=== PATIENT | male | born 1970 | race Caucasian/White ===

== ENCOUNTER → 2016-06-24 | Outpatient (CLI) | payer BC ==
[2016-06-24 09:29] LABS: MEAN CORPUSCULAR HEMOGLOBIN 32.2 pg (27.0-33.0); RED CELL DISTRIBUTION WIDTH 12.6 % (11.5-14.5); WHITE BLOOD COUNT 7.8 K/mm3 (4.0-10.0)
[2016-06-24 09:43] LABS: ALBUMIN 3.8 GM/DL (3.2-5.2); ALBUMIN/GLOBULIN RATIO 1.09 (1.00-1.93); ALKALINE PHOSPHATASE 95 U/L (45-117); ALT/SGPT 54 U/L (12-78); ANION GAP 9 MEQ/L (8-16); AST/SGOT 29 U/L (15-37); BILIRUBIN,TOTAL 0.6 MG/DL (0.2-1.0); BLOOD UREA NITROGEN 11 MG/DL (7-18); CALCIUM LEVEL 8.9 MG/DL (8.5-10.1); CARBON DIOXIDE LEVEL 26 MEQ/L (21-32); CHLORIDE LEVEL 103 MEQ/L (98-107); CHOLESTEROL LEVEL 285 MG/DL (<200); CREATININE FOR GFR 0.88 MG/DL (0.70-1.30); GLOMERULAR FILTRATION RATE > 60.0 (>60); GLUCOSE, FASTING 102 MG/DL (70-105); POTASSIUM SERUM 4.2 MEQ/L (3.5-5.1); SODIUM LEVEL 138 MEQ/L (136-145); TOTAL PROTEIN 7.3 GM/DL (6.4-8.2); TRIGLYCERIDES LEVEL 415 MG/DL (<150)
== END ==
LOC: M WUC 08:16
PROVIDERS: ATTEND Nurse Practitioner Family
DX: I10 Essential (primary) hypertension (principal)

== ENCOUNTER → 2016-07-29 | Outpatient (CLI) | payer BC ==
[2016-07-29 19:01] LABS: MEAN CORPUSCULAR HEMOGLOBIN 31.9 pg (27.0-33.0); MEAN CORPUSCULAR HGB CONC 34.6 g/dl (32.0-36.5); MEAN CORPUSCULAR VOLUME 92.3 fl (80.0-96.0); RED CELL DISTRIBUTION WIDTH 12.6 % (11.5-14.5); WHITE BLOOD COUNT 7.7 K/mm3 (4.0-10.0)
== END ==
LOC: M WUC 10:53
PROVIDERS: ATTEND Nurse Practitioner Family
DX: I10 Essential (primary) hypertension (principal)

== ENCOUNTER 2016-08-29 03:45 | Emergency (ER) | payer BC ==
[~2016-08-29] VITALS: Ht 177.8 cm; Wt 93.2 kg
[2016-08-29] MEDS ORDERED: ATEN50TA2 (03:58)
[2016-08-29] MEDS ORDERED: SIMV20TA2 (03:58)
[2016-08-29] MEDS ORDERED: LISI-538 (03:58)
[2016-08-29] MEDS ORDERED: FLUT1SPR2 (03:58)
[2016-08-29] MEDS ORDERED: ASPIRIN 81 MG CHEW TABLET PO ONE (05:30)
[2016-08-29] MEDS ORDERED: GI COCKTAIL 50ML BTL(HYOSCYAMINE/MAALOX/LIDOCAINE VISCOUS)(1:3:1) PO ONE (05:30)
[2016-08-29 05:35] LABS: BASO # 0.1 K/mm3 (0.0-0.2); BASO % 0.9 % (0.0-1.0); EOS # 0.3 K/mm3 (0.0-0.50); EOS % 3.3 % (0.0-3.0); LARGE UNSTAINED CELL # 0.2 K/mm3 (0.0-0.4); LYMPH % 47.7 % (24.0-44.0); MEAN CORPUSCULAR HEMOGLOBIN 31.3 pg (27.0-33.0); MEAN CORPUSCULAR HGB CONC 35.2 g/dl (32.0-36.5); MEAN CORPUSCULAR VOLUME 88.9 fl (80.0-96.0); MONO # 0.5 K/mm3 (0.0-0.8); MONO % 5.9 % (0.0-5.0); NEUTROPHILS # 3.1 K/mm3 (1.8-7.7); NEUTROPHILS % 39.1 % (36.0-66.0); PLATELET COUNT, AUTOMATED 275 k/mm3 (150-450); RED CELL DISTRIBUTION WIDTH 12.6 % (11.5-14.5); WHITE BLOOD COUNT 7.9 K/mm3 (4.0-10.0)
[2016-08-29 05:45] LABS: ANION GAP 10 MEQ/L (8-16); BLOOD UREA NITROGEN 10 MG/DL (7-18); CALCIUM LEVEL 8.9 MG/DL (8.5-10.1); CARBON DIOXIDE LEVEL 23 MEQ/L (21-32); CHLORIDE LEVEL 100 MEQ/L (98-107); CREATININE FOR GFR 0.89 MG/DL (0.70-1.30); GLOMERULAR FILTRATION RATE > 60.0 (>60); GLUCOSE, FASTING 124 MG/DL (70-105); POTASSIUM SERUM 3.8 MEQ/L (3.5-5.1); SODIUM LEVEL 133 MEQ/L (136-145)
[2016-08-29] MEDS ORDERED: NITROGLYCERIN 0.4 MG SUBL TABLET SL PRN (06:15)
[2016-08-29] MEDS ORDERED: ISOVUE-370 76% 100ML VIAL (Q9967) As Ordered ONE (08:29)
--- NOTE | 2016-08-29 09:41 | REP ---
CT ANGIOGRAM OF THE CHEST: TECHNIQUE: Axial contrast enhanced images from the thoracic inlet to the upper abdomen using 100 mL Isovue 370 intravenous contrast material with multiplanar reformations. There is no CT evidence of pulmonary embolism. There is no thoracic aortic aneurysm or dissection. Heart is normal in size. There is no mediastinal, hilar or chest wall lymphadenopathy. There is no pleural or pericardial effusion. No acute infiltrate is seen in either lung. There is minimal basilar fibroatelectatic change. The visualized upper abdominal structures appear unremarkable. IMPRESSION: No CT evidence of pulmonary embolism. Signed by Umberto Medina MD 08/29/2016 03:19 P
--- NOTE | 2016-08-29 10:00 | REP ---
CHEST, TWO VIEWS: There is no evidence of acute infiltrate. No pleural effusion is seen. The heart is normal in size. The mediastinal silhouette is unremarkable. The visualized osseous structures are intact. IMPRESSION: No acute pulmonary disease. Signed by Umberto Medina MD 08/29/2016 03:19 P
[2016-08-29 11:32] VITALS: BP 133/75
[2016-08-29] MEDS ORDERED: ASPI81TA85 PO (11:36)
--- NOTE | 2016-08-29 20:06 | ECGEPIP ---
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
--- NOTE | 2016-08-29 20:06 | ECGEPIP ---
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
--- NOTE | 2016-08-29 20:06 | ECGEPIP ---
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
== END 2016-08-29 11:41 | disposition home or self-care (01) ==
LOC: M ED 03:45
DX: R07.89 Other chest pain (principal); K21.9 Gastro-esophageal reflux disease without esophagitis; J30.2 Other seasonal allergic rhinitis; Z82.49 Family history of ischemic heart disease and other diseases of the circulatory system; Z79.82 Long term (current) use of aspirin; Z79.899 Other long term (current) drug therapy
CPT/HCPCS: 36415; 71020; 71275; 80048; 82550; 82553; 85025; 93005; 93041; 94760; 99285; G0480; Q9967

== ENCOUNTER → 2017-04-29 | Outpatient (CLI) | payer OTHER | LOC: M LRY 10:55 | DX: M54.9 Dorsalgia, unspecified (principal); M51.36 Other intervertebral disc degeneration, lumbar region | CPT/HCPCS: 72072 ==

== ENCOUNTER 2018-02-08 14:25 | Emergency (ER) | payer BC, OTHER ==
[~2018-02-08] VITALS: Ht 177.8 cm; Wt 100.0 kg
[~2018-02-08 14:25] MED LIST: ASPI81TA85 PO; ATEN50TA2; FLUT1SPR2; LISI-538; SIMV20TA2
[2018-02-08 16:46] LABS: INFLUENZA A AMPLIFICATION NEGATIVE (NEGATIVE); INFLUENZA B AMPLIFICATION NEGATIVE (NEGATIVE)
[2018-02-08] MEDS ORDERED: PSEU30TA21 PO (17:04)
[2018-02-08] MEDS ORDERED: FLON1SPR NARES (17:04)
[2018-02-08] MEDS ORDERED: MUCI600T37 PO (17:05)
[2018-02-08] MEDS ORDERED: NETI1KIT (17:05)
[2018-02-08 17:15] VITALS: BP 127/79
== END 2018-02-08 17:15 | disposition home or self-care (01) ==
LOC: M ED 14:25
DX: J06.9 Acute upper respiratory infection, unspecified (principal); E78.5 Hyperlipidemia, unspecified; I10 Essential (primary) hypertension; F17.210 Nicotine dependence, cigarettes, uncomplicated

== ENCOUNTER → 2018-02-26 | Outpatient (CLI) | payer BC ==
[~2018-02-26] MED LIST changes: +FLON1SPR NARES; +MUCI600T37 PO; +NETI1KIT; +PSEU30TA21 PO
--- NOTE | 2018-02-27 06:48 | REP ---
CHEST PA AND LATERAL: 02/26/2018. Comparison: 08/29/2016 chest x-ray and CT angiogram. Clinical history: Persistent cough. Findings: Two frontal views were required to encompass the and entirety of the chest and a lateral projection also provided. There is patchy infiltrate in the left lower lobe abutting the diaphragm and seen posteriorly on the lateral view as well. There is no pleural effusion. The right lung was clear. The heart, mediastinal and hilar contours are normal. Aorta and airway are intact. Bones were unremarkable. There is no free air under the diaphragm. Impression: 1. Patchy right lower lobe infiltrate. No effusion. Otherwise negative chest. Electronically Signed by Asher Shepard MD 02/27/2018 09:47 A
== END ==
LOC: M LRY 14:27
PROVIDERS: ATTEND Physician Assistant
DX: R05 Cough (principal)

== ENCOUNTER → 2018-03-03 | Outpatient (CLI) | payer BC ==
--- NOTE | 2018-03-03 19:56 | REP ---
Clinical: Follow up pneumonia. Technique: PA and lateral. Comparison: 02/26/2018. Findings: Left lower lobe infiltrate compatible with pneumonia is again identified but improved in appearance. No obvious effusion. No pneumothorax. Mediastinum and cardiac silhouette normal. Skeletal structures intact. Impression: Improved appearance to the left lower lobe infiltrate. Continued follow-up to resolution is recommended. Electronically Signed by Martín Mendez MD 03/03/2018 07:48 P
== END ==
LOC: M LRY 09:36
PROVIDERS: ATTEND Physician Assistant Medical
DX: J18.9 Pneumonia, unspecified organism (principal)

== ENCOUNTER → 2018-08-15 | Outpatient (CLI) | payer BC ==
--- NOTE | 2018-08-15 11:23 | REP ---
RIGHT FOOT SERIES: Four views. HISTORY: Injury of the right foot. FINDINGS: Four views of the right foot demonstrate a small plantar calcaneal spur. There is mild to moderate hallux valgus with osteoarthritic spurring at the 1st MTP joint. There is mild osteoarthritic spurring at the 1st tarsometatarsal articulation as well. No fractures seen. IMPRESSION: 1st MTP and MTT joint spurring. Mild hallux valgus. Heel spur. No acute bony abnormality. Electronically Signed by Fredrick Liang MD 08/15/2018 11:59 A
--- NOTE | 2018-08-15 11:24 | REP ---
RIGHT ANKLE SERIES: Four views. HISTORY: Unspecified injury. The patient reports a fall. FINDINGS: Four views of the right ankle demonstrate an intact ankle mortise. No fracture or subluxation is seen. Small plantar heel spur is noted. IMPRESSION: No fracture noted. Electronically Signed by Fredrick Liang MD 08/15/2018 11:59 A
== END ==
LOC: M LRY 10:15
PROVIDERS: ATTEND Nurse Practitioner Family
DX: M77.31 Calcaneal spur, right foot (principal)

== ENCOUNTER → 2018-11-02 | Outpatient (CLI) | payer BC ==
[2018-11-02 09:49] LABS: BASO # 0.1 10^3/uL (0.0-0.2); BASO % 0.7 % (0.0-1.0); EOS # 0.2 10^3/uL (0.0-0.5); EOS % 2.6 % (0.0-3.0); HEMOGLOBIN 16.3 g/dl (13.5-17.5); LYMPH # 3.6 10^3/uL (1.5-5.0); LYMPH % 46.7 % (24.0-44.0); MEAN CORPUSCULAR HEMOGLOBIN 30.5 pg (27.0-33.0); MEAN CORPUSCULAR HGB CONC 34.7 g/dl (32.0-36.5); MONO # 0.8 10^3/uL (0.0-0.8); MONO % 10.2 % (0.0-5.0); NEUTROPHILS % 39.7 % (36.0-66.0); PLATELET COUNT, AUTOMATED 292 10^3/uL (150-450); RED BLOOD COUNT 5.34 10^6/uL (4.30-6.10); WHITE BLOOD COUNT 7.7 10^3/uL (4.0-10.0)
[2018-11-02 10:30] LABS: ALBUMIN 3.7 GM/DL (3.2-5.2); ALT/SGPT 46 U/L (12-78); BILIRUBIN,TOTAL 0.5 MG/DL (0.2-1.0); BLOOD UREA NITROGEN 13 MG/DL (7-18); CALCIUM LEVEL 8.9 MG/DL (8.5-10.1); CARBON DIOXIDE LEVEL 30 MEQ/L (21-32); CHLORIDE LEVEL 100 MEQ/L (98-107); CHOLESTEROL LEVEL 307 MG/DL (<200); CHOLESTEROL RISK RATIO 9.029 (<5); CREATININE FOR GFR 0.95 MG/DL (0.70-1.30); FREE T4 0.87 NG/DL (0.76-1.46); GLOMERULAR FILTRATION RATE > 60.0 (>60); GLUCOSE, FASTING 108 MG/DL (70-100); HDL CHOLESTEROL 34 MG/DL (>40); NON-HDL-C 273 MG/DL; POTASSIUM SERUM 4.3 MEQ/L (3.5-5.1); SODIUM LEVEL 138 MEQ/L (136-145); TOTAL PROTEIN 7.4 GM/DL (6.4-8.2); TRIGLYCERIDES LEVEL 844 MG/DL (<150)
== END ==
LOC: M LAB 07:36
PROVIDERS: ATTEND Physician Assistant Medical
DX: R53.83 Other fatigue (principal)

== ENCOUNTER → 2018-12-20 | Outpatient (REF) | LOC: M LAB LCGH 14:50 | PROVIDERS: ATTEND Physician Assistant | DX: C44.311 Basal cell carcinoma of skin of nose (principal) ==

== ENCOUNTER → 2019-02-15 | Outpatient (REF) | payer BC ==
[~2019-02-15] MED LIST changes: -SIMV20TA2; +SIMV20TA22
[2019-02-15 16:41] LABS: INFLUENZA A AMPLIFICATION NEGATIVE (NEGATIVE); INFLUENZA B AMPLIFICATION POSITIVE (NEGATIVE)
== END ==
LOC: M LAB REF 15:31
PROVIDERS: ATTEND Physician Assistant
DX: J11.1 Influenza due to unidentified influenza virus with other respiratory manifestations (principal)

== ENCOUNTER 2023-01-31 19:55 | Emergency (ER) | payer OTHER ==
[~2023-01-31] VITALS: Ht 177.8 cm; Wt 129.4 kg
[~2023-01-31 19:55] MED LIST changes: -ASPI81TA85 PO; +ASPI81TA86 PO; -LISI-538; +LISI20TA33
[2023-01-31] MEDS ORDERED: ASPIRIN 81MG CHEW TABLET PO ONE (20:25)
[2023-01-31] MEDS ORDERED: PANTOPRAZOLE 40MG VIAL IV ONE (20:25)
[2023-01-31] MEDS ORDERED: NS 1,000 ML IV ONE (20:25)
[2023-01-31 20:42] VITALS: BP 141/83
[2023-01-31 21:01] LABS: VENOUS BASE EXCESS 1.2 (-2.0-2.0); VENOUS HCO3 26.7 MMOL/L (23.0-27.0); VENOUS O2 SATURATION 76.7 % (60.0-80.0); VENOUS PARTIAL PRESSURE CO2 44.9 mmHg (38.0-50.0); VENOUS PARTIAL PRESSURE O2 40.2 mmHg (30.0-50.0); VENOUS PH 7.392 UNITS (7.330-7.430); VENOUS STANDARD HCO3 24.9 MMOL/L; VENOUS TOTAL CO2 28.1 MMOL/L (24.0-28.0)
[2023-01-31 21:05] LABS: BASO # 0.1 10^3/uL (0.0-0.2); BASO % 0.6 % (0.0-1.0); EOS # 0.2 10^3/uL (0.0-0.5); HEMATOCRIT 48.4 % (42.0-52.0); HEMOGLOBIN 16.7 g/dl (13.5-17.5); LYMPH # 3.9 10^3/uL (1.5-5.0); LYMPH % 45.2 % (24.0-44.0); MEAN CORPUSCULAR HEMOGLOBIN 29.2 pg (27.0-33.0); MEAN CORPUSCULAR HGB CONC 34.5 g/dl (32.0-36.5); MEAN CORPUSCULAR VOLUME 84.6 fl (80.0-96.0); MONO # 0.5 10^3/uL (0.0-0.8); MONO % 6.1 % (2.0-8.0); PLATELET COUNT, AUTOMATED 264 10^3/uL (150-450); RED BLOOD COUNT 5.72 10^6/uL (4.30-6.10); WHITE BLOOD COUNT 8.7 10^3/uL (4.0-10.0)
[2023-01-31 21:32] LABS: LIPASE 32 U/L (12-53)
[2023-01-31 21:33] LABS: CK-MB VALUE MASS < 1.0 NG/ML (<3.6)
[2023-01-31 21:34] LABS: ALBUMIN 3.7 G/DL (3.2-5.2); ALKALINE PHOSPHATASE 67 U/L (46-116); ALT/SGPT 53 U/L (7.0-40); AST/SGOT 32 U/L (<34); BILIRUBIN,DIRECT 0.1 MG/DL (<0.4); BILIRUBIN,TOTAL 0.4 MG/DL (0.3-1.2); BLOOD UREA NITROGEN 11 MG/DL (9-23); CALCIUM LEVEL 9.1 MG/DL (8.5-10.1); CARBON DIOXIDE LEVEL 25 MMOL/L (20-31); CHLORIDE LEVEL 108 MMOL/L (98-107); CREATININE FOR GFR 0.83 MG/DL (0.70-1.30); GLOMERULAR FILTRATION RATE > 60.0 (>56); GLUCOSE, FASTING 93 MG/DL (60-100); POTASSIUM SERUM 4.1 MMOL/L (3.5-5.1); SODIUM LEVEL 141 MMOL/L (136-145); TOTAL PROTEIN 6.6 G/DL (5.7-8.2)
[2023-01-31 21:36] LABS: THYROID STIMULATING HORMONE 1.686 uIU/ML (0.55-4.78)
[2023-01-31 21:38] LABS: CPK CREATINE PHOSPHOKINASE 107 U/L (46-171); MB/CK RELATIVE INDEX 0.93 (< OR =4)
[2023-01-31 23:00] VITALS: TEMP 98.3
[2023-01-31 23:45] VITALS: O2SAT 97
== END 2023-01-31 23:59 | disposition home or self-care (01) ==
LOC: M ED 19:55 → EDBD 19:55 → M ED 23:59
DX: R07.9 Chest pain, unspecified (principal); I10 Essential (primary) hypertension; E78.5 Hyperlipidemia, unspecified; F10.10 Alcohol abuse, uncomplicated; Z87.891 Personal history of nicotine dependence; Z88.8 Allergy status to other drugs, medicaments and biological substances; Z91.048 Other nonmedicinal substance allergy status; Z79.811 Long term (current) use of aromatase inhibitors; Z79.891 Long term (current) use of opiate analgesic; Z79.899 Other long term (current) drug therapy
CPT/HCPCS: 71046; 80048; 80076; 82550; 82553; 82803; 83690; 83880; 84443; 84484; 85025; 85379; 87486; 87581; 87633; 87798; 93005; 93041; 94760; 96361; 96374; 99285; C9113

== ENCOUNTER 2023-03-27 07:18 | Emergency (ER) | payer BC, OTHER ==
[~2023-03-27] VITALS: Ht 177.8 cm; Wt 105.7 kg
[2023-03-27 07:51] LABS: BASO % 0.6 % (0.0-1.0); EOS # 0.1 10^3/uL (0.0-0.5); EOS % 1.7 % (0.0-3.0); HEMATOCRIT 49.2 % (42.0-52.0); HEMOGLOBIN 17.2 g/dl (13.5-17.5); LYMPH # 3.1 10^3/uL (1.5-5.0); LYMPH % 43.9 % (24.0-44.0); MEAN CORPUSCULAR HEMOGLOBIN 29.8 pg (27.0-33.0); MEAN CORPUSCULAR VOLUME 85.3 fl (80.0-96.0); MONO # 0.6 10^3/uL (0.0-0.8); NEUTROPHILS # 3.2 10^3/uL (1.5-8.5); NEUTROPHILS % 45.7 % (36.0-66.0); PLATELET COUNT, AUTOMATED 244 10^3/uL (150-450); RED BLOOD COUNT 5.77 10^6/uL (4.30-6.10)
[2023-03-27] MEDS ORDERED: BUPR150T12 (07:53)
[2023-03-27] MEDS ORDERED: SODI177S2 (07:53)
[2023-03-27] MEDS ORDERED: OMEP-173 (07:53)
[2023-03-27] MEDS ORDERED: LISI40TA4 (07:53)
[2023-03-27] MEDS ORDERED: ROSU20TA61 (07:53)
[2023-03-27] MEDS ORDERED: ATEN100T (07:53)
[2023-03-27] MEDS: MAALOX 30 ML SUSP *UDC PO ONE (08:02)
[2023-03-27] MEDS: NS 500 ML IV ONE (08:02)
[2023-03-27] MEDS: SUCRALFATE 1 GM TAB PO ONE (08:08)
[2023-03-27 08:13] LABS: INR 1.03; PROTHROMBIN TIME 13.2 SECONDS (12.5-14.5)
[2023-03-27] MEDS ORDERED: ISOVUE-370 76% 100ML VIAL As Ordered ONE (08:13)
[2023-03-27 08:14] LABS: PARTIAL THROMBOPLASTIN TIME 28.1 SECONDS (24.8-34.2)
[2023-03-27 08:25] LABS: LIPASE 36 U/L (12-53)
[2023-03-27 08:26] LABS: CPK CREATINE PHOSPHOKINASE 97 U/L (46-171)
[2023-03-27 08:27] LABS: ALBUMIN 4.1 G/DL (3.2-5.2); ALKALINE PHOSPHATASE 74 U/L (46-116); ALT/SGPT 46 U/L (7.0-40); AST/SGOT 18 U/L (<34); BILIRUBIN,DIRECT 0.3 MG/DL (<0.4); BILIRUBIN,TOTAL 0.8 MG/DL (0.3-1.2); BLOOD UREA NITROGEN 12 MG/DL (9-23); CALCIUM LEVEL 9.1 MG/DL (8.5-10.1); CARBON DIOXIDE LEVEL 26 MMOL/L (20-31); CHLORIDE LEVEL 103 MMOL/L (98-107); CREATININE FOR GFR 0.96 MG/DL (0.70-1.30); GLOMERULAR FILTRATION RATE > 60.0 (>56); GLUCOSE, FASTING 106 MG/DL (60-100); POTASSIUM SERUM 3.8 MMOL/L (3.5-5.1); SODIUM LEVEL 136 MMOL/L (136-145); TOTAL PROTEIN 7.1 G/DL (5.7-8.2)
[2023-03-27 08:28] LABS: RSV AMPLIFICATION NEGATIVE (NEGATIVE)
[2023-03-27 08:30] LABS: CK-MB VALUE MASS < 1.0 NG/ML (<3.6); MB/CK RELATIVE INDEX 1.03 (< OR =4)
[2023-03-27 08:34] LABS: THYROID STIMULATING HORMONE 1.805 uIU/ML (0.55-4.78)
[2023-03-27 08:35] LABS: FREE T4 1.26 NG/DL (0.89-1.76)
[2023-03-27 09:26] LABS: CK-MB VALUE MASS < 1.0 NG/ML (<3.6)
[2023-03-27 09:27] LABS: CPK CREATINE PHOSPHOKINASE 82 U/L (46-171); MB/CK RELATIVE INDEX 1.21 (< OR =4)
[2023-03-27 11:13] LABS: CK-MB VALUE MASS < 1.0 NG/ML (<3.6)
[2023-03-27 12:07] LABS: CPK CREATINE PHOSPHOKINASE 82 U/L (46-171); MB/CK RELATIVE INDEX 1.21 (< OR =4)
[2023-03-27] MEDS ORDERED: CARA1TAB6 PO (12:43)
[2023-03-27] MEDS ORDERED: OMEP40CA4 PO (12:43)
[2023-03-27 12:55] VITALS: TEMP 97.3
[2023-03-27 13:00] VITALS: BP 112/69; O2SAT 94
== END 2023-03-27 13:28 | disposition home or self-care (01) ==
LOC: M ED 07:18 → EDBD 07:18 → M ED 13:28
DX: R07.9 Chest pain, unspecified (principal); K21.9 Gastro-esophageal reflux disease without esophagitis; K29.70 Gastritis, unspecified, without bleeding; R00.1 Bradycardia, unspecified; G47.33 Obstructive sleep apnea (adult) (pediatric); E78.5 Hyperlipidemia, unspecified; I10 Essential (primary) hypertension; F41.9 Anxiety disorder, unspecified; Z87.891 Personal history of nicotine dependence; Z88.8 Allergy status to other drugs, medicaments and biological substances; Z91.048 Other nonmedicinal substance allergy status; Z79.811 Long term (current) use of aromatase inhibitors; Z79.83 Long term (current) use of bisphosphonates; Z79.899 Other long term (current) drug therapy
CPT/HCPCS: 71045; 71275; 74177; 80047; 80048; 80076; 82550; 82553; 83690; 83880; 84439; 84443; 84484; 85025; 85610; 85730; 87631; 93005; 93041; 94760; 96360; 96361; 99285; Q9967

== ENCOUNTER 2023-06-10 07:20 | Day surgery (SDC) | payer OTHER ==
[~2023-06-10] VITALS: Ht 177.8 cm; Wt 99.1 kg
[2023-06-10] MEDS: NS 1,000 ML IV ONE (06:00)
[~2023-06-10 07:20] MED LIST changes: +ATEN100T; +ATEN100T PO; +BUPR150T12; +CARA1TAB6 PO; +CYAN500T14 PO; +LISI40TA4; +LISI40TA4 PO; +OMEP-173; +OMEP40CA4 PO; +ROSU20TA61; +ROSU20TA61 PO; +SODI177S2; +THERTAB52 PO; +propofoL 200 MG/20 ML VIAL As Ordered ONE; +propofoL 500 MG/50 ML VIAL As Ordered ONE
[2023-06-10] MEDS ORDERED: fentaNYL 100 MCG/2 ML INJECTION As Ordered ONE (08:19)
[2023-06-10 08:51] VITALS: TEMP 98.3
[2023-06-10 09:07] VITALS: BP 115/75; O2SAT 95
== END 2023-06-10 09:20 | disposition home or self-care (01) ==
LOC: M OPP 07:20
PROVIDERS: ATTEND Internal Medicine Gastroenterology
DX: Z12.11 Encounter for screening for malignant neoplasm of colon (principal); D12.3 Benign neoplasm of transverse colon; K31.7 Polyp of stomach and duodenum; K64.8 Other hemorrhoids; K21.9 Gastro-esophageal reflux disease without esophagitis; I10 Essential (primary) hypertension; Z79.899 Other long term (current) drug therapy; Z85.828 Personal history of other malignant neoplasm of skin; Z88.8 Allergy status to other drugs, medicaments and biological substances; Z91.030 Bee allergy status; J30.2 Other seasonal allergic rhinitis
CPT/HCPCS: 45385; 88305; J3010

== ENCOUNTER → 2025-01-24 | Outpatient (REF) | payer OTHER ==
[~2025-01-24] MED LIST changes: +LISI40TA10; +LISI40TA10 PO; -LISI40TA4; -LISI40TA4 PO; -ROSU20TA61; -ROSU20TA61 PO; +ROSU20TA86; +ROSU20TA86 PO; -propofoL 200 MG/20 ML VIAL As Ordered ONE; -propofoL 500 MG/50 ML VIAL As Ordered ONE
== END ==
LOC: M LAB REF 17:07
PROVIDERS: ATTEND Physician Assistant
DX: J02.9 Acute pharyngitis, unspecified (principal)